=== PATIENT | female | born 1970 | race Caucasian/White ===

== ENCOUNTER → 2016-10-24 | Outpatient (CLI) | payer OTHER | LOC: LAB 19:14 | PROVIDERS: ATTEND Nurse Practitioner Acute Care | DX: R30.0 Dysuria (principal) | CPT/HCPCS: 87086; 87088; 87186 ==

== ENCOUNTER → 2018-02-07 | Outpatient (CLI) | payer OTHER ==
[2018-02-07 15:40] LABS: ABSOLUTE LYMPHOCYTES (AUTO) 1.1 10^3/uL (0.5-4.7); ABSOLUTE MONOCYTES (AUTO) 0.6 10^3/uL (0.1-1.4); ABSOLUTE NEUT (AUTO) 3.9 10^3/uL (1.7-8.2); BASOPHILS % (AUTO) 0.3 % (0-2); HEMATOCRIT 35.4 % (36.0-47.0); HEMOGLOBIN 12.1 g/dL (12.0-15.5); LYMPHOCYTES % (AUTO) 19.2 % (13-45); MEAN CORPUSCULAR HGB CONC 34.3 g/dL (32.0-36.0); MEAN CORPUSCULAR VOLUME 93 fl (80-97); MONOCYTES % (AUTO) 10.3 % (3-13); PLATELET COUNT 213 10^3/uL (150-450); RED BLOOD COUNT 3.79 10^6/uL (3.72-5.28); RED CELL DISTRIBUTION WIDTH 16.2 % (11.5-14.0); SEGMENTED NEUTROPHILS % (AUTO) 70.2 % (42-78); TOTAL CELLS COUNTED % (AUTO) 100 %; WHITE BLOOD COUNT 5.5 10^3/uL (4.0-10.5)
[2018-02-07 16:02] LABS: ALANINE AMINOTRANSFERASE 40 U/L (9-52); ALBUMIN 3.9 g/dL (3.5-5.0); ALKALINE PHOSPHATASE 96 U/L (38-126); ANION GAP 8 (5-19); ASPARTATE AMINO TRANSFERASE 27 U/L (14-36); BILIRUBIN,DIRECT 0.2 mg/dL (0.0-0.4); BILIRUBIN,TOTAL 0.5 mg/dL (0.2-1.3); BLOOD UREA NITROGEN 23 mg/dL (7-20); CALCIUM 9.2 mg/dL (8.4-10.2); CARBON DIOXIDE 29 mmol/L (22-30); CHLORIDE 100 mmol/L (98-107); GLUCOSE 79 mg/dL (75-110); POTASSIUM 3.9 mmol/L (3.6-5.0); TOTAL PROTEIN 6.7 g/dL (6.3-8.2)
[2018-02-07 16:17] LABS: FREE T4 (FREE THYROXINE) 0.93 ng/dL (0.78-2.19)
[2018-02-07 16:31] LABS: THYROID STIMULATING HORMONE 2.53 uIU/mL (0.47-4.68)
== END ==
LOC: OD 14:41
PROVIDERS: ATTEND Nurse Practitioner
DX: C67.1 Malignant neoplasm of dome of bladder (principal)
CPT/HCPCS: 36415; 80053; 82533; 84439; 84443; 85025

== ENCOUNTER 2018-02-13 12:41 | Emergency (ER) | payer OTHER ==
[2018-02-13 12:53] VITALS: BP 125/83
--- NOTE | 2018-02-13 13:10 | ER Document Report ---
HPI - HPI Pain Level: 4 Notes: Patient is a 47-year-old female with a history of adrenal cancer as well as peripheral neuropathy who presents to the ED complaining of left foot and ankle pain/swelling status post injury 1.5 weeks ago. Patient states that she tripped and twisted her foot/ankle at that time. She has noticed pain in that foot and ankle intermittently which is not common for her. She has not noticed any redness or bruising otherwise. Pain does not radiate. She is still able to ambulate. Denies any headache, fever, head injury, URI, sore throat, chest pain, palpitations, syncope, cough, shortness of breath, wheeze, dyspnea, abdominal pain, nausea/vomiting/diarrhea, urinary retention, dysuria, hematuria , muscle paralysis/weakness, or rash. - ROS Systems Reviewed and Negative: Yes All other systems reviewed and negative - MUSCULOSKELETAL Musculoskeletal: REPORTS: Extremity pain Past Medical History - Social History Smoking Status: Unknown if Ever Smoked Family History: DM Patient has suicidal ideation: No Patient has homicidal ideation: No Renal/ Medical History: Denies: Hx Peritoneal Dialysis - Immunizations Immunizations up to date: No - given in RME Vertical Provider Document - CONSTITUTIONAL Agree With Documented VS: Yes Notes: PHYSICAL EXAMINATION: GENERAL: Well-appearing, well-nourished and in no acute distress. LUNGS: Breath sounds clear to auscultation bilaterally and equal. No wheezes rales or rhonchi. HEART: Regular rate and rhythm without murmurs, rubs, gallops. Musculoskeletal: Lt foot/ankle: + mild swelling to the ankle and dorsal foot. + tenderness primarily to the dorsal foot. FROM to passive/active. Strength 5+/ 5. Achilles intact. Concepcion neg b/l. No LE asymmetry otherwise. Extremities: No cyanosis, clubbing, or edema b/l. Peripheral pulses 2+. Capillary refill less than 3 seconds. NEUROLOGICAL: Normal speech, normal gait. PSYCH: Normal mood, normal affect. SKIN: Warm, Dry, normal turgor, no rashes or lesions noted. - INFECTION CONTROL TRAVEL OUTSIDE OF THE [place] IN LAST 30 DAYS: No Course - Re-evaluation Re-evalutation: 02/13/18 14:55 Patient is an afebrile, well-hydrated M 47-year-old female who presents to the ED with a possible avulsion fracture to the cuboid that cannot be adequately ruled out by imaging at this time. Vitals are acceptable without any significant tachycardia, tachypnea, or hypoxia. PE is otherwise unremarkable for any neurovascular compromise, obvious tendon/ligament rupture, open fracture , septic joint. See XR result. Splint applied today and crutches provided. Patient declined any Tylenol or Motrin at this time. Patient is nontoxic- appearing. No other labs or imaging warranted at this time based on H&P. Conservative measures otherwise for symptoms. Recheck with your PCM in 3-5 days. Call orthopedics tomorrow to schedule an appointment for further evaluation and management. Return to the ED with any worsening/concerning symptoms otherwise as reviewed in discharge. Patient is in agreement. - Vital Signs Vital signs: Temp Pulse Resp BP Pulse Ox 99.3 F 91 14 125/83 98 02/13/18 12:52 02/13/18 12:52 02/13/18 12:52 02/13/18 12:52 02/13/18 12:52 Procedures - Immobilization Left Ankle Time completed: 14:50 Pre-Proc Neuro Vasc Exam: Normal Immobilizer type: Posterior ankle Performed by: PCT Post-Proc Neuro Vasc Exam: Normal, Unchanged from pre-exam Discharge - Discharge Clinical Impression: Left foot pain Cuboid fracture Qualifiers: Encounter type: initial encounter Fracture type: closed Fracture alignment: nondisplaced Laterality: left Qualified Code(s): S92.215A - Nondisplaced fracture of cuboid bone of left foot, initial encounter for closed fracture Condition: Stable Disposition: HOME, SELF-CARE Instructions: Splint Precautions ([facility]) Additional Instructions: As reviewed, your imaging cannot entirely rule out an avulsion fracture to your cuboid bone. We will place you on a splint at this time and have you follow-up with orthopedics your family doctor for possible reimaging next week to further evaluate. Rest, Ice, Compression, Elevation Use crutches/splint as directed Tylenol/ibuprofen as needed F/u with your PCP in 3-5 days for a recheck Call orthopedics tomorrow to schedule an appointment for further evaluation and management Return to the ED with any worsening symptoms and/or development of fever, headache, chest pain, palpitations, syncope, shortness of breath, trouble breathing, abdominal pain, n/v/d, muscle weakness/paralysis, numbness/tingling, swelling, redness, or other worsening symptoms that are concerning to you. Referrals: BRANDY [facility] [Primary Care Provider] - Follow up as needed [facility] [Provider Group] - Follow up in 3-5 days
--- NOTE | 2018-02-13 13:46 | RADIOLOGY REPORT (SQ) ---
EXAM DESCRIPTION: FOOT LEFT COMPLETE COMPLETED DATE/TIME: 02/13/2018 1:34 pm REASON FOR STUDY: pain s/p injury COMPARISON: None. NUMBER OF VIEWS: Three views. TECHNIQUE: AP, lateral and oblique radiographic images acquired of the left foot. LIMITATIONS: None. FINDINGS: MINERALIZATION: Normal. BONES: No acute fracture or dislocation. Incidental os peroneum. No worrisome bone lesions. JOINTS: Intact. SOFT TISSUES: No soft tissue swelling. No foreign body. OTHER: No other significant finding. IMPRESSION: NEGATIVE STUDY OF THE LEFT FOOT. NO RADIOGRAPHIC EVIDENCE OF ACUTE INJURY. TECHNICAL DOCUMENTATION: JOB ID: [id number] [employer]- All Rights Reserved Reading location - IP/workstation name: [email or web address]
--- NOTE | 2018-02-13 13:50 | RADIOLOGY REPORT (SQ) ---
EXAM DESCRIPTION: ANKLE LEFT COMPLETE COMPLETED DATE/TIME: 02/13/2018 1:34 pm REASON FOR STUDY: pain s/p injury COMPARISON: None. NUMBER OF VIEWS: Three views. TECHNIQUE: AP, lateral, and oblique radiographic images acquired of the left ankle. LIMITATIONS: None. FINDINGS: MINERALIZATION: Normal. BONES: No definite fracture or dislocation. There is a small calcification or fragment of bone adjac ent to the cuboid such that an avulsion injury cannot be excluded. JOINTS: No effusions. SOFT TISSUES: No soft tissue swelling. No foreign body. OTHER: No other significant finding. IMPRESSION: Cannot exclude a small avulsion involving the cuboid. TECHNICAL DOCUMENTATION: JOB ID: [id number] [employer]- All Rights Reserved Reading location - IP/workstation name: [email or web address]
== END 2018-02-13 14:44 | disposition home or self-care (01) ==
LOC: ER 12:41
PROC: 2W3RX1Z Immobilization of Left Lower Leg using Splint (ICD-10-PCS; principal; 2018-02-13)
DX: S92.215A Nondisplaced fracture of cuboid bone of left foot, initial encounter for closed fracture (principal); M79.672 Pain in left foot; X58.XXXA Exposure to other specified factors, initial encounter
CPT/HCPCS: 99283

== ENCOUNTER 2018-12-24 11:47 | Emergency (ER) | payer OTHER ==
--- NOTE | 2018-12-24 12:20 | ER Document Report ---
HPI - HPI Time Seen by Provider: 12/24/18 12:08 Pain Level: 2 Context: Patient is a 48-year-old female presents to the emergency department with a chief complaint of left upper arm pain. Patient states that back in September she was crossing the street when she tripped and fell catching herself with her left arm. Patient states that since September she has had constant left upper arm pain. Patient states she is currently going through immunotherapy at [facility] for bladder and adrenal cancer. Patient is not currently on chemo or radiation. Patient was told by her cancer doctor that she needed to come to the emergency department to have her arm pain checked out. Patient states movement makes the left upper arm pain worse. - CONSTITUTIONAL Constitutional: DENIES: Fever, Chills - REPRODUCTIVE Reproductive: DENIES: : Past Medical History - General Information source: Patient - Social History Smoking Status: Current Every Day Smoker Frequency of alcohol use: None Drug Abuse: None Lives with: Family Family History: DM Patient has suicidal ideation: No Patient has homicidal ideation: No - Past Medical History Cardiac Medical History: Reports: None Pulmonary Medical History: Reports: None EENT Medical History: Reports: None Neurological Medical History: Reports: None Endocrine Medical History: Reports: None Renal/ Medical History: Reports: None. Denies: Hx Peritoneal Dialysis Malignancy Medical History: Reports: Other - Bladder and Adrenal cancer GI Medical History: Reports: None Musculoskeletal Medical History: Reports None Skin Medical History: Reports None Psychiatric Medical History: Reports: None Traumatic Medical History: Reports: None Infectious Medical History: Reports: None - Immunizations Immunizations up to date: No - given in RME Vertical Provider Document - CONSTITUTIONAL Agree With Documented VS: Yes Exam Limitations: No Limitations General Appearance: No Apparent Distress - INFECTION CONTROL TRAVEL OUTSIDE OF THE [place] IN LAST 30 DAYS: No - HEENT HEENT: Atraumatic, Normal ENT Exam, Normocephalic, PERRLA - RESPIRATORY Respiratory: Breath Sounds Normal, No Respiratory Distress - CARDIOVASCULAR Cardiovascular: Regular Rate, Regular Rhythm - GI/ABDOMEN Gastrointestinal: Abdomen Soft, Abdomen Non-Tender, Normal Bowel Sounds - MUSCULOSKELETAL/EXTREMETIES Notes: Patient has tenderness to the left lateral humerus with palpation. There is no obvious edema, ecchymosis, erythema or deformity. Patient is able to lift her arm up to the height of her shoulder at max as this does induce pain. Patient has strong bilateral automobile service station mechanic. Patient has a +2 palpable radial and brachial pulse. There is no swelling, ecchymosis, erythema or deformity noted to the left shoulder. Patient does not have any pain to the anterior, posterior, lateral shoulder. Course - Re-evaluation Re-evalutation: 12/24/18 12:19 Patient reports that her left upper arm and shoulder pain is worse when she attempts to place her arm behind her back and with certain movements. Will obtain an x-ray. If x-ray is normal will place patient in a sling with orthopedic follow-up as she has had the symptoms for months. 12/24/18 13:11 I did discuss the results of the x-rays with the patient. Will place patient in the sling for comfort. I did inform the patient that since her fall was 3 months ago and she continues to have pain she needs to follow-up with orthopedics. Patient verbalizes understanding. - Vital Signs Vital signs: Temp Pulse Resp BP Pulse Ox 98.4 F 82 18 101/63 95 12/24/18 11:54 12/24/18 11:54 12/24/18 11:54 12/24/18 11:54 12/24/18 11:54 - Diagnostic Test Radiology reviewed: Reports reviewed Radiology results interpreted by me: 12/24/18 13:00 Humerus X-Ray 12/24/18 12:15 IMPRESSION: NEGATIVE STUDY OF THE LEFT HUMERUS. NO RADIOGRAPHIC EVIDENCE OF ACUTE INJURY. Shoulder X-Ray 12/24/18 12:15 IMPRESSION: NEGATIVE STUDY OF THE LEFT SHOULDER. NO EXPLANATION FOR PAIN. Discharge - Discharge Clinical Impression: Left arm pain, Left upper arm pain Fall Qualifiers: Encounter type: initial encounter Qualified Code(s): W19.XXXA - Unspecified fall, initial encounter Condition: Stable Disposition: HOME, SELF-CARE Additional Instructions: Today you were seen in the emergency department for left upper arm pain that has been present since a fall back in September. We did obtain an x-ray of the left humerus which is the upper arm as well as the left shoulder which did not show any acute bony abnormality. There could be some underlying injury such as tendon, etc that may require further orthopedic work-up. I have provided you with multiple orthopedic referrals in your discharge instructions. Please return if your arm becomes swollen, weak, discolored or increasingly painful or if you develop any new signs or symptoms. Arm Pain, Nonspecific We did not find an obvious cause for your arm pain. There's no sign of blood clot, infection, heart attack, stroke, or other serious disease. Most of the time, this type of pain goes away. If it does, no further evaluation is necessary. If pain continues or keeps coming back, we can do further testing. Possible causes of vague arm pain include muscle or joint inflammation, disc disease in the neck, pressure on the nerves and artery in the chest or armpit ("thoracic outlet syndrome"), or heart disease. Rest the arm. Pain can be eased with an antiinflammatory pain medicine such as ibuprofen. If the pain involves a small area, a heating pad might help. Call the doctor or return if the arm becomes swollen, weak, discolored, or increasingly painful, or if you develop any other significant change in your health. Referrals: ARNOLD ARMENTA MD [ACTIVE STAFF] - Follow up as needed FRANCHESKA BUCHANAN DO [ACTIVE STAFF] - Follow up as needed AVERY DIAZ MD [ACTIVE PROVISIONAL STAFF] - Follow up as needed
--- NOTE | 2018-12-24 12:53 | RADIOLOGY REPORT (SQ) ---
EXAM DESCRIPTION: HUMERUS LEFT COMPLETED DATE/TIME: 12/24/2018 12:36 pm REASON FOR STUDY: fell september, still having pain, cancer patient COMPARISON: None. NUMBER OF VIEWS: Two views. TECHNIQUE: Two radiographic images were acquired of the left humerus to include elbow and shoulder i n at least one projection. LIMITATIONS: None. FINDINGS: MINERALIZATION: Normal. BONES: No acute fracture or dislocation. No worrisome bone lesions. SOFT TISSUES: No obvious swelling or foreign body. OTHER: No other significant finding. IMPRESSION: NEGATIVE STUDY OF THE LEFT HUMERUS. NO RADIOGRAPHIC EVIDENCE OF ACUTE INJURY. TECHNICAL DOCUMENTATION: JOB ID: [id number] [employer]- All Rights Reserved Reading location - IP/workstation name: [email or web address]
--- NOTE | 2018-12-24 12:59 | RADIOLOGY REPORT (SQ) ---
EXAM DESCRIPTION: SHOULDER LEFT 2 OR MORE VIEWS COMPLETED DATE/TIME: 12/24/2018 12:36 pm REASON FOR STUDY: fell arnoldo, still having pain, cancer patient COMPARISON: None. NUMBER OF VIEWS: Three view. TECHNIQUE: Internal rotation, external rotation, and Y view images acquired of the left shoulder. LIMITATIONS: None. FINDINGS: MINERALIZATION: Normal. BONES: No acute fracture. No worrisome bone lesions. No significant osteophytes. GLENOHUMERAL JOINT: No significant findings. ACROMIOCLAVICULAR JOINT: No large osteophytes. SOFT TISSUES: No calcifications. VISUALIZED RIBS, SPINE, AND LUNG: No other significant finding. OTHER: No other significant finding. IMPRESSION: NEGATIVE STUDY OF THE LEFT SHOULDER. NO EXPLANATION FOR PAIN. TECHNICAL DOCUMENTATION: JOB ID: [id number] [employer]- All Rights Reserved Reading location - IP/workstation name: [email or web address]
[2018-12-24 13:13] VITALS: BP 107/76
== END 2018-12-24 13:15 | disposition home or self-care (01) ==
LOC: ER 11:47
DX: M79.602 Pain in left arm (principal); W01.0XXA Fall on same level from slipping, tripping and stumbling without subsequent striking against object, initial encounter; F17.200 Nicotine dependence, unspecified, uncomplicated
CPT/HCPCS: 99283

== ENCOUNTER → 2019-02-27 | Outpatient (CLI) | payer OTHER ==
--- NOTE | 2019-02-27 13:46 | WOMENS IMAGING REPORT ---
EXAM DESCRIPTION: BILAT SCREENING MAMMO W/CAD COMPLETED DATE/TIME: 02/27/2019 1:27 pm REASON FOR STUDY: Z12.31 ENCOUNTER FOR SCREENING MAMMOGRAM FOR MALIGNANT NEOPLASM OF BREAST Z12.31 ENCNTR SCREEN MAMMOGRAM FOR MALIGNANT NEOPLASM OF PINKY COMPARISON: None. EXAM PARAMETERS: Standard craniocaudal and mediolateral oblique views of each breast recorded using digital acquisition. Read with the assistance of CAD. .[facility] - [employer] Machine Bunch Maker Version 9.2 LIMITATIONS: None. FINDINGS: No suspicious masses, suspicious calcifications or architectural distortion. No areas of c oncern. IMPRESSION: Negative MAMMOGRAM. BIRADS 1 BREAST DENSITY: b. There are scattered areas of fibroglandular density. BIRAD: ASSESSMENT: 1 NEGATIVE RECOMMENDATION: ROUTINE SCREENING COMMENT: The patient has been notified of the results by letter per MQSA requirements. Additional no tification policies are in place for contacting patient with suspicious or incomplete findings. Quality ID #225: The [employer] recommends an annual screening mammogram for women aged 40 years or over. This facility utilizes a reminder system to ensure that all patients receive reminder letters, and/or direct phone calls for appointments. This includes reminders for routine scr eening mammograms, diagnostic mammograms, or other Breast Imaging Interventions when appropriate. Th is patient will be placed in the appropriate reminder system. TECHNICAL DOCUMENTATION: FINDING NUMBER: (1) ASSESSMENT: (1) JOB ID: [id number] [employer]- All Rights Reserved Reading location - IP/workstation name: [email or web address]
== END ==
LOC: WI 13:05
PROVIDERS: ATTEND Nurse Practitioner Family
DX: Z12.31 Encounter for screening mammogram for malignant neoplasm of breast (principal)
CPT/HCPCS: 77067

== ENCOUNTER 2019-10-16 08:02 | Day surgery (SDC) | payer OTHER ==
[2019-10-16] MEDS ORDERED: ONDANSETRON HCL INJ/PF 4 MG/2 ML SDV IV PRN (10:01)
[2019-10-16] MEDS ORDERED: FENTANYL CITRATE INJ/PF 100 MCG/2 ML AMPUL IV PRN ×3 (10:01)
[2019-10-16 11:27] VITALS: BP 113/77
--- NOTE | 2019-10-16 11:56 | Operative Report ---
Operative Report DATE OF SURGERY: 10/16/19 Operative Report: the risk, benefits and alternatives of the procedure including the risks of bleeding, perforation requiring surgery have been explained to the patient in detail and informed consent has been obtained. Patient is taken back to the operating room placed in a left, lateral decubital position. Timeout was called. Propofol medication is administered. Rectal examination is done which did not reveal any masses, tears or fissures. The Olympus videoscope was introduced into the patient's rectum. The scope was then carefully advanced all the way to the cecum. The cecum was identified by the usual anatomical landmarks including the ileocecal valve as well as the appendiceal office. Photodocumentation is obtained. Scope was then sequentially pulled back via the various segments of the colon including the ascending colon, back fracture, transverse colon, splenic flexure, descending colon and finally into the rectosigmoid portions of the colon. Retroflexion maneuver is performed. The risks benefits and alternatives of the procedure explained to the patient in detail and informed consent is obtained.A GIF Olympus video scope was inserted into the patient's mouth and hypopharynx ,the esophagus is identified intubated and insufflated, the scope was then advanced through the esophagus stomach and duodenum, retroflexion maneuver is done the esophagus stomach and first and second portions of the duodenum examined PREOPERATIVE DIAGNOSIS: Chronic diarrhea POSTOPERATIVE DIAGNOSIS: Duodenitis status post biopsy rule out celiac disease. gastritis status post biopsy rule out H. pylori. Esophagitis. Terminal ileitis status post biopsy. Right colon inflammation status post biopsy OPERATION: Colonoscopy with biopsy. EGD with biopsy SURGEON: LOUISA EARLY ANESTHESIA: LMAC TISSUE REMOVED OR ALTERED: As noted above. COMPLICATIONS: None. ESTIMATED BLOOD LOSS: None. INTRAOPERATIVE FINDINGS: As noted above. PROCEDURE: Patient tolerated the procedure well. No immediate postprocedure complications are noted. Patient is discharged in good condition. Discharge date 10/16/2019. Discharge diet: Regular. Discharge activity: Regular. 2 to 3-week follow-up to discuss findings. Patient is instructed to call the office or proceed to the emergency room should there be any further problems or questions. Wait on the pathology.
== END 2019-10-16 11:05 | disposition home or self-care (01) ==
LOC: OROUT 08:02
PROVIDERS: ATTEND Internal Medicine Gastroenterology
DX: K31.9 Disease of stomach and duodenum, unspecified (principal); K52.9 Noninfective gastroenteritis and colitis, unspecified; K29.80 Duodenitis without bleeding; K20.9 Esophagitis, unspecified; E78.5 Hyperlipidemia, unspecified; F17.210 Nicotine dependence, cigarettes, uncomplicated; Z79.899 Other long term (current) drug therapy
CPT/HCPCS: 43239; 45380; 87635; 88342 ×2; 88305 ×2; 00813; J2704; C9803; 813

== ENCOUNTER → 2019-12-25 | Outpatient (CLI) | payer OTHER ==
--- NOTE | 2019-12-25 16:24 | RADIOLOGY REPORT (SQ) ---
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 TECHNIQUE: CT scan of the chest performed using helical scanning technique with dynamic intravenous contrast injection. Images reviewed with lung, soft tissue and bone windows. Reconstructed coronal and sagittal MPR and MIP images reviewed. All images stored on PACS. All CT scanners at this facility use dose modulation, iterative reconstruction, and/or weight based d osing when appropriate to reduce radiation dose to as low as reasonably achievable (ALARA). [facility]: Dose Right [facility]: CareDose [facility]: Dose Right [facility]: Teradose 4D [facility]: [employer] CONTRAST TYPE AND DOSE: 80 mL Omnipaque 350- low osmolar. RENAL FUNCTION: Not recorded here. Refer to the technologist's notes. RADIATION DOSE: CT Rad equipment meets quality standard of care and radiation dose reduction techniq ues were employed. CTDIvol: 4.4 - 5.1 mGy. DLP: 672 mGy-cm. . LIMITATIONS: None. FINDINGS: LUNGS AND PLEURA: No opacities, nodules, masses. No pneumothorax. No effusions. HILAR AND MEDIASTINAL STRUCTURES: No identified masses or abnormal nodes. HEART AND VASCULAR STRUCTURES: No aneurysm or dissection. No central pulmonary emboli. No pericardi al effusion. HARDWARE: None in the chest. UPPER ABDOMEN: No significant findings. Limited exam. THYROID AND OTHER SOFT TISSUES: No masses. No adenopathy. BONES: No significant finding. OTHER: No other significant finding. IMPRESSION: There is no evidence of metastatic disease in the thorax. No acute findings. TECHNICAL DOCUMENTATION: JOB ID: [id number] Quality ID # [id number]: Final reports with documentation of one or more dose reduction techniques (e.g., Au tomated exposure control, adjustment of the mA and/or kV according to patient size, use of iterative reconstruction technique) 2010 [employer]- All Rights Reserved Reading location - IP/workstation name: [email or web address]
--- NOTE | 2019-12-25 16:37 | RADIOLOGY REPORT (SQ) ---
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 Oral contrast. Images reviewed with lung, soft tissue, and bone win dows. Reconstructed coronal and sagittal MPR images reviewed. Delayed images for evaluation of the ur inary system also acquired. All images stored on PACS. All CT scanners at this facility use dose modulation, iterative reconstruction, and/or weight based d osing when appropriate to reduce radiation dose to as low as reasonably achievable (ALARA). [facility]: Dose Right [facility]: CareDose [facility]: Dose Right [facility]: Teradose 4D [facility]: [employer] CONTRAST TYPE AND DOSE: contrast/concentration: Isovue 350.00 mmol/ml; Total Contrast Delivered: 80. 0 ml; Total Saline Delivered: 40.0 ml RENAL FUNCTION: None required. The patient is less than 50 years old. RADIATION DOSE: . LIMITATIONS: None. FINDINGS: LOWER CHEST: See separate report of the CT of the chest. LIVER: Normal size. No masses. No dilated ducts. SPLEEN: Normal size. No focal lesions. PANCREAS: No masses. No significant calcifications. No adjacent inflammation or peripancreatic fluid collections. Pancreatic duct not dilated. GALLBLADDER: No identified stones by CT criteria. No inflammatory changes to suggest cholecystitis. ADRENAL GLANDS: 14 mm right adrenal nodule is unchanged. RIGHT KIDNEY AND URETER: No solid masses. No significant calcifications. No hydronephrosis or hyd roureter. LEFT KIDNEY AND URETER: No solid masses. No significant calcifications. No hydronephrosis or hydr oureter. AORTA AND VESSELS: No aneurysm. No dissection. Renal arteries, SMA, celiac without stenosis. RETROPERITONEUM: No retroperitoneal adenopathy, hemorrhage or masses. BOWEL AND PERITONEAL CAVITY: No masses or inflammatory changes. No free fluid or peritoneal masses. APPENDIX: Normal. PELVIS: No pelvic mass. No adenopathy. 2c no free fluid. The bladder is surgically absent. 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 BONES: No significant or acute findings. OTHER: No other significant finding. IMPRESSION: 1. The bladder is surgically absent. 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 There is no evidence of metastatic disease in the abdomen or pelvis. 3. Stable right adrenal nodule. TECHNICAL DOCUMENTATION: JOB ID: [id number] Quality ID # [id number]: Final reports with documentation of one or more dose reduction techniques (e.g., Au tomated exposure control, adjustment of the mA and/or kV according to patient size, use of iterative reconstruction technique) 2010 [employer]- All Rights Reserved Reading location - IP/workstation name: [email or web address]
== END ==
LOC: RAD 12:11
PROVIDERS: ATTEND Internal Medicine Hematology & Oncology
DX: C67.9 Malignant neoplasm of bladder, unspecified (principal)
CPT/HCPCS: 71260; 74177